=== PATIENT | male | born 1965 | race American Indian/Alaskan Native ===

== ENCOUNTER 2021-12-19 16:08 | Emergency (ER) | payer BC ==
[2021-12-19 18:54] VITALS: BP 167/74
--- NOTE | 2021-12-20 11:35 | Electrocardiograph Report ---
[facility] Test Date: 2021-12-19 Test Time: 18:59:44 Pat Name: MARY CALDERON Department: Room: Gender: M [employer] Building [employer]: : [id number] Requested By: ARCADIO SIMMONS Order Number: [id number] Reading MD: Hayden Hendrix Measurements Intervals [place] Rate: 80 P: 44 HI: 155 QRS: 55 QRSD: 88 T: 59 QT: 369 QTc: 427 Interpretive Statements Sinus rhythm No previous ECG available for comparison Electronically Signed On 12-20-2021 11:35:03 EDT by Hayden Hendrix
== END 2021-12-19 21:00 | disposition left against medical advice (07) ==
LOC: ED 16:08
DX: R07.9 Chest pain, unspecified (principal); Z53.21 Procedure and treatment not carried out due to patient leaving prior to being seen by health care provider
CPT/HCPCS: 93005